=== PATIENT | female | born 1990 | race Two or more races ===

== ENCOUNTER 2018-05-12 10:21 | Emergency (ER) | payer MEDICAID ==
[2018-05-12 11:37] LABS: URINE SOURCE CLEAN C
[2018-05-12 11:41] LABS: URINE BILIRUBIN NEGATIVE (NEGATIVE); URINE BLOOD NEGATIVE (NEGATIVE); URINE GLUCOSE (UA) NEGATIVE (NEGATIVE); URINE KETONE NEGATIVE (NEGATIVE); URINE LEUKOCYTE ESTERASE NEGATIVE (NEGATIVE); URINE NITRATE NEGATIVE (NEGATIVE); URINE PROTEIN NEGATIVE (NEGATIVE); URINE UROBILINOGEN 0.2 E.U./dL (0.2 - 1.0)
[2018-05-12] MEDS ORDERED: Lactated Ringer 1,000 ML IV ONE ×2 (11:41→12:48)
[2018-05-12 11:44] LABS: URINE CLARITY CLEAR (CLEAR); URINE COLOR YELLOW; URINE MICROSCOPIC INDICATED? YES
[2018-05-12 11:47] LABS: URINE BACTERIA OCCASIONAL /hpf (NONE SEEN); URINE EPITHELIAL CELLS FEW /lpf (FEW); URINE RBC 0-2 /hpf (0-5); URINE WBC 0-2 /hpf (0-5)
[2018-05-12 12:04] LABS: % BASOPHILS 0.3 % (0.0-2.0); % EOSINOPHILS 0.6 % (0.0-5.0); % LYMPHOCYTES 18.5 % (20.0-50.0); % MONOCYTES 5.3 % (2.0-10.0); % NEUTROPHILS 75.3 % (40.0-80.0); HEMATOCRIT 40.7 % (41.0-60); HEMOGLOBIN 13.7 gm/dL (12-16); LYMPHOCYTE ABSOLUTE 1.4 Th/cmm (1.5-3.0); MEAN CELL VOLUME 91.3 fl (81-100); MEAN CORPUSCULAR HEMOGLOBIN 30.7 pg (27.0-31.0); MEAN CORPUSCULAR HGB CONC 33.6 pg (28.0-36.0); MEAN PLATELET VOLUME 7.7 fl; MONOCYTE ABSOLUTE 0.4 Th/cmm (0.3-1.0); NEUTROPHILE ABSOLUTE 5.8 Th/cmm (1.8-8.0); PLATELET COUNT 248 Th/cmm (150-400); RED BLOOD COUNT 4.46 Mil/cmm (3.80-5.10); RED CELL DISTRIBUTION WIDTH 11.4 % (11.5-20.0); WHITE BLOOD COUNT 7.6 Th/cmm (4.8-10.8)
[2018-05-12 12:23] LABS: ALB/GLOB RATIO 1.5 (1.0-1.8); ALBUMIN 4.6 gm/dL (3.7-5.3); ALKALINE PHOSPHATASE 47 U/L (34-104); ANION GAP 13.8 (7.0-16.0); BILIRUBIN,TOTAL 0.3 mg/dL (0.3-1.0); BUN - UREA NITROGEN 15 mg/dL (7-25); CALCIUM SERUM 9.8 mg/dL (8.6-10.3); CARBON DIOXIDE 24.2 mEq/L (21.0-31.0); CHLORIDE 102 mEq/L (98-107); CREATININE - SERUM 0.7 mg/dL (0.6-1.2); GFR AFRICAN-AMERICAN > 60.0 ml/min (>90); GFR NON AFRICAN-AMERICAN > 60.0 ml/min; GLUCOSE 102 mg/dL (70-105); SGOT 18 U/L (13-39); SGPT/ALT 20 U/L (7-52); SODIUM SERUM 136 mEq/L (136-145); TOTAL PROTEIN,SERUM 7.7 gm/dL (6.0-8.3)
--- NOTE | 2018-05-12 12:33 | ED Physician Chart ---
ED Chief Complaint/HPI - Patient Information Date Seen:: 05/12/18 Time Seen:: 11:02 Chief Complaint:: lower abd pain History of Present Illness:: lower abd pain in a patient who denies vaginal discharge and who is 7 days after her period. no h/o ovarian cysts.. Allergies:: Allergies Allergy/AdvReac Type Severity Reaction Status Date / Time Sulfa (Sulfonamide Allergy Verified 05/12/18 11:02 Antibiotics) Vitals:: Vital Signs - 8 hr 05/12/18 11:02 Temp 97.3 F HR 98 RR 16 BP 143/95 O2 Sat % 100 Historian:: Patient Review:: Nurse's Note Reviewed ED Review of Systems - Review of Systems General/Constitutional: No fever, No chills, No weight loss, No weakness, No diaphoresis, No edema, No loss of appetite Skin: No skin lesions, No rash, No bruising Head: No headache, No light-headedness Eyes: No loss of vision, No pain, No diplopia ENT: No earache, No nasal drainage, No sore throat, No tinnitus Neck: No neck pain, No swelling, No thyromegaly, No stiffness, No mass noted Cardio Vascular: No chest pain, No palpitations, No PND, No orthopnea, No edema Pulmonary: No SOB, No cough, No sputum, No wheezing GI: No nausea, No vomiting, No diarrhea, Pain, No melena, No hematochezia, No constipation, No hematemesis G/U: No dysuria, No frequency, No hematuria Merchandising Representative: No vaginal discharge, No abnormal vaginal bleed, No contraction Musculoskeletal: No bone or joint pain, No back pain, No muscle pain Endocrine: No polyuria, No polydipsia Psychiatric: No prior psych history, No depression, No anxiety, No suicidal ideation Hematopoietic: No bruising, No lymphadenopathy Allergic/Immuno: No urticaria, No angioedema Neurological: No syncope, No focal symptoms, No weakness, No paresthesia, No headache, No seizure, No dizziness, No confusion, No vertigo ED Past Medical History - Past Medical History Obtainable: Yes Past Medical History: No significant medical hx Family Medical History - Family Member Mother History Unknown: Yes Living Status: Still Living ED Physical Exam - Physical Examination General/Constitutional: Awake, Well-developed, well-nourished, Alert, GCS 15, Non-toxic appearing, Ambulatory Other Gen/Cons comments:: in minimal distress. Head: Atraumatic Eyes: Lids, conjuctiva normal, PERRL, EOMI Skin: Nl inspection, No rash, No skin lesions, No ecchymosis, Well hydrated, No lymphadenopathy ENMT: External ears, nose nl Neck: Nontender, No nuchal rigidity Respiratory: Nl effort/Exclusion, Clear to Auscultation, No Wheeze/Rhonchi/Rales Cardio Vascular: RRR, No murmur, gallop, rubs, NL S1 S2 GI: No organomegaly, No hernia, Normal BS's, Nondistended, No mass/bruits, No McBurney tenderness Other GI comments:: slight tenderness located in the LLQ. No peritoneal signs per se. : No CVA tenderness Extremities: No tenderness or effusion, Full ROM, normal strength in all extremities, No edema, Normal digits & nails Neuro/Psych: Alert/oriented, Normal sensory exam, Normal motor strength, Judgement/insight normal, Mood normal, Normal gait, No focal deficits Misc: Normal back ED Labs/Radiology/EKG Results - Lab Results Results: Laboratory Tests 05/12/18 05/12/18 05/12/18 11:15 11:29 11:56 WBC 7.6 RBC 4.46 Hgb 13.7 Hct 40.7 L MCV 91.3 MCH 30.7 MCHC Differential 33.6 RDW 11.4 L Plt Count 248 MPV 7.7 Neutrophils % 75.3 Lymphocytes % 18.5 L Monocytes % 5.3 Eosinophils % 0.6 Basophils % 0.3 Sodium Potassium Chloride Carbon Dioxide Anion Gap BUN Creatinine Est GFR ( Amer) Est GFR (Non-Af Amer) BUN/Creatinine Ratio Glucose Calcium Total Bilirubin AST ALT Alkaline Phosphatase Total Protein Albumin Globulin Albumin/Globulin Ratio Urine Source CLEAN C Urine Color YELLOW Urine Clarity CLEAR Urine pH 6.0 Ur Specific Kevil 1.020 Urine Protein NEGATIVE Urine Glucose (UA) NEGATIVE Urine Ketones NEGATIVE Urine Blood NEGATIVE Urine Nitrate NEGATIVE Urine Bilirubin NEGATIVE Urine Urobilinogen 0.2 Ur Leukocyte Esterase NEGATIVE Urine RBC 0-2 Urine WBC 0-2 Ur Epithelial Cells FEW Urine Bacteria OCCASIONAL POC Ur Test Negative 05/12/18 11:56 WBC RBC Hgb Hct MCV MCH MCHC Differential RDW Plt Count MPV Neutrophils % Lymphocytes % Monocytes % Eosinophils % Basophils % Sodium 136 Potassium 4.0 Chloride 102 Carbon Dioxide 24.2 Anion Gap 13.8 BUN 15 Creatinine 0.7 Est GFR ( Amer) > 60.0 Est GFR (Non-Af Amer) > 60.0 BUN/Creatinine Ratio 21.4 Glucose 102 Calcium 9.8 Total Bilirubin 0.3 AST 18 ALT 20 Alkaline Phosphatase 47 Total Protein 7.7 Albumin 4.6 Globulin 3.1 Albumin/Globulin Ratio 1.5 Urine Source Urine Color Urine Clarity Urine pH Ur Specific Kevil Urine Protein Urine Glucose (UA) Urine Ketones Urine Blood Urine Nitrate Urine Bilirubin Urine Urobilinogen Ur Leukocyte Esterase Urine RBC Urine WBC Ur Epithelial Cells Urine Bacteria POC Ur Test ED Assessment - Assessment General Assessment: LLQ mass on ultrasound. CT scan recommended. fluid in cul de sac. Ultrasound L sided ovarian cysts. ED Septic Shock - . Is Septic Shock (SBP<90, OR Lactate>4 mmol\L) present?: No - <6hrs of presentation: Vital Signs: Vital Signs - 8 hr 05/12/18 11:02 Temp 97.3 F HR 98 RR 16 BP 143/95 O2 Sat % 100 ED Reassessment (Disposition) - Reassessment Reassessment Condition:: Improved - Diagnosis Diagnosis:: Left ovarian cysts vs. left ovarian mass. Abdominal pain, resolved. - Aftercare/Follow up Instructions Aftercare/Follow-Up Instructions:: Refer to Discharge Instructions Notes:: follow up with your banker mason for further evaluation and work up. Medication Prescribed:: none. not in pain now. - Patient Disposition Discharge/Transfer:: Home Condition at Disposition:: Stable, Improved
--- NOTE | 2018-05-12 13:57 | Diagnostic Imaging Report ---
Pelvic ultrasound HISTORY: Pain Transabdominal and transvaginal sonographic technique were utilized. There is a normal uterine size (9.5 x 4.0 x 4.7 cm). No focal myometrial lesions are seen. The endometrium appears thickened (1.3 cm). The findings should be correlated clinically and with menstrual status. The right ovary measures 2.0 x 1.8 x 2.8 cm. 2 subcentimeter cysts are seen. The left ovary is mildly enlarged (4.1 x 4.4 x 4.2 cm. There is an approximate 3.0 cm complex mass with solid and cystic components seen in the left adnexal area. Etiology uncertain. An inflammatory process or neoplastic etiology cannot be excluded. Small amount of free fluid seen in the pelvis. IMPRESSION: 1. Complex left adnexal mass along with a small amount of free fluid in the lower pelvis. Etiology is uncertain. Findings related to an inflammatory or neoplastic etiology cannot be excluded. In the presence of a positive test, ectopic gestation must be excluded. 2. Thickened endometrium (1.3 cm). The finding should be correlated clinically and with menstrual status.
--- NOTE | 2018-05-13 08:17 | Diagnostic Imaging Report ---
CT scan abdomen and pelvis without intravenous contrast HISTORY: Pain Total DLP equals 460 CTDI equals 9.8 Axial sections were obtained from the xiphoid process down to the pubic symphysis. The liver exhibits a normal size and contour. No focal lesions. The spleen appears normal. No abnormality seen in the region of the pancreas. No focal renal lesions. No hydronephrosis. The exam of the pelvis demonstrates a moderate amount of free fluid. In view the quantity, exact etiology uncertain. Inflammatory change cannot be excluded. Hypodensity and fullness noted in the left adnexal region. This appears to correspond to abnormal changes noted on the earlier ultrasound exam. Stool-filled nondilated large bowel noted. IMPRESSION: 1. Moderate amount of free fluid within the lower pelvis. Additional left adnexal fullness with hypodensity corresponds to abnormal changes noted on an ultrasound exam performed earlier in the day. An inflammatory process cannot be excluded. Clinical correlation is needed.
== END 2018-05-12 16:40 | disposition home or self-care (01) ==
LOC: ER 10:21
DX: R19.04 Left lower quadrant abdominal swelling, mass and lump (principal); Z88.2 Allergy status to sulfonamides
CPT/HCPCS: 36415-UA; 76856-TC; 80053-TC; 81001-TC; 81025-TC; 85025-TC